=== PATIENT | female | born 1945 | race Caucasian/White ===

== ENCOUNTER → 2024-08-14 | Outpatient (CLI) | payer MEDICARE ==
[2024-08-14 14:33] LABS: INR 0.9 (<1.2); Partial Thromboplastin Time 23.3 sec (22.0-30.0); Prothrombin Time 10.4 sec (10.0-12.5)
[2024-08-14 19:30] LABS: HCT 41.8 % (37.2-46.3); HGB 13.5 g/dL (12.0-15.0); MCH 27.7 pg (27.0-32.0); MCHC 32.3 g/dL (32.0-37.0); MCV 85.8 FL (80.0-97.0); Mean Platelet Volume 10.3 FL (9.5-12.2); NRBC Per 100 WBC 0 X 10*3/uL (0.00-0.01); Platelet Count 297 X 10*3/uL (140-440); RBC 4.87 X 10*6/uL (4.10-5.20); RDW 13.1 % (11.5-14.5); WBC 7.52 X 10*3/uL (4.50-10.00)
[2024-08-14 19:36] LABS: ALT 19 U/L (8-44); AST 23 U/L (13-35); Albumin 4.3 g/dL (3.8-4.9); Albumin/Globulin Ratio 1.54 Ratio (1.60-3.17); Alkaline Phosphatase 138 U/L (41-126); BUN/Creat Ratio 18.33 Ratio (12.00-20.00); Blood Urea Nitrogen 16.5 mg/dL (9.0-27.0); Calcium 9.6 mg/dL (8.7-10.3); Carbon Dioxide 29.8 mmol/L (21.6-31.8); Chloride 103 mmol/L (96-109); Globulin 2.8 g/dL (1.6-3.3); Glucose 127 mg/dL (70-110); Potassium 4.4 mmol/L (3.5-5.5); Sodium 143 mmol/L (135-145); Total Bilirubin 0.2 mg/dL (0.3-1.2); Total Protein 7.1 g/dL (6.2-8.2)
== END | disposition home or self-care (01) ==
LOC: LABPAT 13:09
PROVIDERS: ATTEND Orthopaedic Surgery
DX: Z01.812 Encounter for preprocedural laboratory examination (principal); E11.9 Type 2 diabetes mellitus without complications; M16.11 Unilateral primary osteoarthritis, right hip; Z22.322 Carrier or suspected carrier of Methicillin resistant Staphylococcus aureus
CPT/HCPCS: 80053; 83036; 85027; 85610; 85730; 86850; 86900; 86901; 87070

== ENCOUNTER → 2025-02-22 | Outpatient (CLI) | payer MEDICARE ==
[2025-02-22 12:14] LABS: INR 1.0 (<1.2); Partial Thromboplastin Time 24.0 sec (22.0-30.0); Prothrombin Time 10.7 sec (10.0-12.5)
[2025-02-22 15:52] LABS: HCT 37.5 % (37.2-46.3); HGB 12.0 g/dL (12.0-15.0); MCH 27.6 pg (27.0-32.0); MCHC 32.0 g/dL (32.0-37.0); MCV 86.4 FL (80.0-97.0); NRBC Per 100 WBC 0 X 10*3/uL (0.00-0.01); Platelet Count 338 X 10*3/uL (140-440); RBC 4.34 X 10*6/uL (4.10-5.20); RDW 13.7 % (11.5-14.5); WBC 7.66 X 10*3/uL (4.50-10.00)
[2025-02-22 15:58] LABS: ALT 27 U/L (8-44); AST 27 U/L (13-35); Albumin 4.3 g/dL (3.8-4.9); Albumin/Globulin Ratio 1.65 Ratio (1.60-3.17); Alkaline Phosphatase 128 U/L (41-126); Anion Gap 13.50 mmol/L (4.00-12.00); BUN/Creat Ratio 29.62 Ratio (12.00-20.00); Blood Urea Nitrogen 23.7 mg/dL (9.0-27.0); Calcium 9.6 mg/dL (8.7-10.3); Carbon Dioxide 25.5 mmol/L (21.6-31.8); Chloride 104 mmol/L (96-109); Globulin 2.6 g/dL (1.6-3.3); Glucose 106 mg/dL (70-110); Potassium 4.7 mmol/L (3.5-5.5); Sodium 143 mmol/L (135-145); Total Protein 6.9 g/dL (6.2-8.2)
== END | disposition home or self-care (01) ==
LOC: LABWHC1 11:04
PROVIDERS: ATTEND Orthopaedic Surgery
DX: Z01.818 Encounter for other preprocedural examination (principal); M16.11 Unilateral primary osteoarthritis, right hip; I44.7 Left bundle-branch block, unspecified; E11.9 Type 2 diabetes mellitus without complications; I44.0 Atrioventricular block, first degree; R00.1 Bradycardia, unspecified; R94.31 Abnormal electrocardiogram [ECG] [EKG]; Z22.322 Carrier or suspected carrier of Methicillin resistant Staphylococcus aureus
CPT/HCPCS: 36415; 80053; 83036; 85027; 85610; 85730; 86850; 86900; 86901; 87070; 93005

== ENCOUNTER 2025-03-02 08:24 | Day surgery (SDC) | payer MEDICARE ==
[~2025-03-02 08:24] MED LIST: HYDROmorphone 0.5 MG/0.5 ML SYRINGE IVP PRN; TRANEXAMIC 1,000 MG/100ML-NACL 1,000 MG in SALINE 1 100ML.BAG IV PRN; TRANEXAMIC 1,000 MG/100ML-NACL 1,000 MG in SALINE 1 100ML.BAG IVPB PRN
[2025-03-02] MEDS: LACTATED RINGERS 1,000 ML IV SCH (09:00)
[2025-03-02] MEDS: IV FLUID CONTINUATION 1,000 ML IV ONE (09:00)
[2025-03-02] MEDS: LIDOCAINE 1% (10MG/ML) FOR IV START INTRADERMA STA (09:01)
[2025-03-02] MEDS: ACETAMINOPHEN TAB 500 MG TAB PO PRN (09:01)
[2025-03-02] MEDS: oxyCODONE ER 10 MG TAB.ER.12H PO PRN (09:02)
[2025-03-02] MEDS: DOCUSATE 100 MG CAP PO PRN (09:03)
[2025-03-02] MEDS: ONDANSETRON 4 MG/2 ML VIAL IVP PRN ×2 (09:03→18:22)
[2025-03-02] MEDS: FAMOTIDINE 20 MG/2 ML VIAL IVP PRN (09:03)
[2025-03-02] MEDS: KETOROLAC 15 MG/ML 1 ML VIAL IVP PRN (09:03)
[2025-03-02] MEDS: DEXAMETHASONE SOD PHOSPHATE 10 MG/ML 1 ML VIAL IV PRN (09:03)
[2025-03-02] MEDS: MIDAZOLAM 2 MG/2 ML VIAL IV PRN (09:23)
[2025-03-02] MEDS: fentaNYL (PF) 50 MCG/ML 2 ML AMP IVP PRN (09:23)
[2025-03-02] MEDS ORDERED: ROPIVACAINE 5 MG/ML 30 ML VIAL ONE (10:25)
[2025-03-02] MEDS ORDERED: PROPOFOL 10 MG/ML 20 ML VIAL IV ONE (10:25)
[2025-03-02] MEDS ORDERED: LIDOCAINE 1% INJ 10MG/ML (20 ML MDV) ONE (10:25)
[2025-03-02] MEDS ORDERED: PHENYLEPHRINE 10 MG/ML VIAL ONE (10:25)
[2025-03-02] MEDS ORDERED: ePHEDrine 50 MG/ML 1 ML VIAL ONE (10:25)
[2025-03-02] MEDS ORDERED: GLYCOPYRROLATE 0.2 MG/ML 2 ML VIAL ONE (10:25)
[2025-03-02] MEDS ORDERED: DEXAMETHASONE SOD PHOSPHATE 4 MG/ML 1 ML VIAL ONE (10:25)
[2025-03-02] MEDS ORDERED: TRANEXAMIC 1,000 MG/100ML-NACL PREMIX BAG ONE (10:25)
[2025-03-02] MEDS ORDERED: ROCURONIUM 10 MG/ML (5 ML VIAL) IV ONE (10:25)
[2025-03-02] MEDS ORDERED: NEOSTIGMINE 1 MG/ML 10 ML VIAL ONE (10:25)
[2025-03-02] MEDS ORDERED: SUCCINYLCHOLINE CHLORIDE 200 MG/10 ML VIAL IV ONE (10:25)
[2025-03-02] MEDS ORDERED: fentaNYL (PF) 50 MCG/ML 2 ML AMP ONE (10:25)
[2025-03-02] MEDS: ROPIVACAINE/EPI/CLONIDINE/KET 50 ML SYRINGE MISCELLANE PRN (10:59)
[2025-03-02] MEDS: SODIUM CHLORIDE IRRIGATION ONE ×2 (11:44→11:56)
[2025-03-02] MEDS: EPINEPHRINE IRRIGATION ONE ×2 (11:44→11:56)
[2025-03-02] MEDS ORDERED: HYDROcodone/APAP 5-325MG 1 EACH TAB PO PRN (12:29)
[2025-03-02] MEDS ORDERED: hydrOXYzine HCL 25 MG TAB PO PRN (12:29)
[2025-03-02] MEDS ORDERED: NALOXONE 0.4 MG/ML 1 ML VIAL IV PRN (12:29)
[2025-03-02] MEDS ORDERED: diazePAM 5 MG TAB PO PRN ×2 (12:29)
[2025-03-02] MEDS ORDERED: HYDROmorphone 0.5 MG/0.5 ML SYRINGE IVP PRN ×3 (12:29)
[2025-03-02] MEDS ORDERED: TEMAZEPAM 15 MG CAP PO PRN (12:29)
[2025-03-02] MEDS ORDERED: MAGNESIUM HYDROXIDE 2,400 MG/30 ML CUP PO PRN (12:29)
--- NOTE | 2025-03-02 12:29 | P.OP ---
Date of Procedure: 03/02/25 Preoperative Diagnosis: 1. Right hip osteoarthritis 2. History of breast cancer 3. Known history of osteoporosis Postoperative Diagnosis: Same Procedure(s) Performed: Right direct anterior total hip arthroplasty Implants: 1. [place] Trident II Acetabular Cup, Size #50 2. [place] Accolade C Size #3 Femoral Stem, High Offset 3. Dual Mobility OD 38 mm, ID 28 mm, -2.7 mm neck Anesthesia: RAHEELA, regional Surgeon: Niall Cruz Securities Teller #1: Henry Gandhi Estimated Blood Loss (ml): 300 IV fluids (ml): 800 Pathology: none sent Condition: stable Disposition: PACU Indications for Procedure: I had a long discussion with the patient in the office on the potential risks and complications of an elective total hip replacement through a direct anterior approach. Risks discussed include, but are certainly not limited to, risks from anesthesia, superficial infection requiring local wound care or antibiotics, deep sachin-prosthetic joint infection and the treatment required to eradicate infection, intraoperative fracture, postoperative periprosthetic fracture, damage to local blood vessels or nerves particularly the lateral femoral cutaneous nerve, delayed wound healing requiring local wound care or possibly surgical debridement, hip dislocation, leg length discrepancy, soft tissue irritation around the total hip implant such as iliopsoas tendinitis or trochanteric bursitis, wear and osteolysis from the implants, squeaking or audible noises, groin pain, thigh pain, heterotopic ossification, stiffness, aseptic loosening of the implants, dissatisfaction with surgical outcome, need for revision surgery, DVT, PE, swelling of the operative extremity, acute coronary event, stroke, failure to thrive, and possibly loss of life or limb. The patient understands that while these are the most common complications after an elective hip replacement there are certainly other less common complications possible. They were given ample time to ask questions regarding the potential complications of a hip replacement. Following our discussion the patient provided their verbal and written consent to go forward with an elective total hip replacement. Operative Findings: Severe right hip osteoarthritis with hypertrophic spurring along the femoral neck and acetabulum. Inflamed synovium in the hip joint. Description of Procedure: The patient was identified in the preoperative holding area and the correct hip was marked with my initials. I reviewed the procedure and consent with the patient. All of their questions were answered. The patient was then brought back into the operating room by anesthesia. While on the [facility] anesthesia was administered by the anesthesia team. Preoperative antibiotics and tranexamic acid were also given. After the patient was under anesthesia I examined their ankles to determine their preoperative leg length discrepancy. The skin over the anterior aspect of the hip was shaved to remove hair over the site of planned incision. Both feet and ankles were padded with webril and boots for the [place] were applied. The patient was then carefully transferred onto the [place] table. A perineal post was immediately placed. The arms were placed on arm holders and were well-padded. Both boots were secured to the spars on the [place] table. The patient was positioned so that the pelvis was centered over the post. Nonsterile drapes were applied. A timeout was performed identifying the correct patient, operative extremity, and procedure. At this point fluoroscopy was brought in to take preoperative images of the pelvis and operative hip. Using the standing AP pelvis from the office as a template, a comparable image was obtained with fluoroscopy. A metallic bar was used to create a bi-ischial line for use as a reference to leg length adjustments during the procedure. Global offset was also measured on both the operative and nonoperative leg. Fluoroscopy was then brought out and a pre-scrub using a chlorhexidine scrub brush was performed. The operative limb was then prepped and draped in the standard sterile fashion. An anterior longitudinal incision was made lateral and distal to the ASIS. The skin and subcutaneous tissues were incised sharply. The underlying tensor fascia was identified and incised in its midportion. The fascia was dissected free from the underlying muscle and the muscle belly was retracted. A blunt tipped cobra retractor was placed over the superior neck under the muscle fibers of the gluteus minimus. The deep enveloping fascia of the tensor was incised. The anterior leash of vessels were then identified and cauterized. The fascia between the rectus and the capsule was then incised and the pre-capsular fat was excised. A second Cobra was placed inferior to the neck. The interval between the rectus and iliocapsularis and the hip capsule was developed and a retractor was placed carefully over the anterior rim of the acetabulum. A T-shaped anterior capsulotomy was performed. The superior capsular leaflet was left in place in the inferior capsular flap was excised. The Cobra retractors were placed intracapsularly. We then made a femoral neck osteotomy according to preoperative and intraoperative templating and confirmed the level of the osteotomy using fluoroscopic imaging. The femoral head was removed, passed off to the back table, and sized. The superior capsular flap was excised. Retractors were placed circumferentially exposing the acetabulum. We then circumferentially debrided the acetabulum free of labrum and osteophytes. The pulvinar was removed to fully visualize the cotyloid fossa. We then sequentially reamed to achieve peripheral fit and excellent bleeding subchondral bone. The socket was thoroughly irrigated. The acetabular component was impacted into the appropriate position using fluoroscopy to guide version, inclination, and depth of insertion taking care to have a comparable image of the AP pelvis to the standing image taken in the office. An excellent press-fit was achieved and final position was confirmed using fluoroscopy. The press fit was augmented with bony cancellus dome screws. The liner was then impacted into the socket. Attention was then turned to the femur. The remnant dorsal lateral capsule was excised. The short external rotators were visible and protected. A bone hook was used to confirm appropriate translation of the trochanter away from the acetabulum. The leg was then extended and adducted and the bone hook was used to elevate the femur for broaching. On inspection of the patient's proximal femur, they appeared to have poor bone quality so I elected to proceed with cemented fixation of the femoral component. A box osteotome and blunt tipped canal sound was then utilized to gain access to the femoral canal. We then sequentially broached the femur in appropriate anteversion until torsional stability was achieved and the implant was felt to have reached the appropriate size to allow trialing. The neck cut was brought flush to the trial broach with a calcar planar. A trial neck and head were then placed onto the broach and the hip was atraumatically reduced under direct visualization. External rotation to 90 was performed to assess stability. Fluoroscopy was brought in. An AP and lateral fluoroscopic image of the proximal femur was obtained to assess position and fill of the trial broach. An AP of the pelvis was then obtained and matched to the preoperative image taken. A bi-ischial bar was then placed and measurements were taken to assess changes in length and offset. The hip was then carefully dislocated, the proximal femur was exposed, and the trial implants were removed. The proximal femur was then prepared for cementing. The canal was thoroughly irrigated with pulsatile lavage to remove blood and marrow contents. A cement restrictor was placed to a depth just distal to the tip of the final implant. Epinephrine-soaked gauze was then packed into the proximal femur. 2 bags of cement were then mixed using a centrifuge and placed into a cement gun. Anesthesia was notified that cementing was about to commence to make sure the patient was appropriately ventilated and hydrated. Once the cement had reached appropriate consistency, the cement gun was used to fill the canal in a retrograde fashion starting at the restrictor. Cement was then pressurized into the canal with a blue tipped project management advisor. The stem was then carefully introduced into the cement taking care to guide the implant into appropriate version. The stem was held in position until the cement had fully set. All extra cement was removed while the cement was hardening. The trunnion was cleansed and the final head was tapped into place to engage the Hussein taper. The acetabulum was irrigated and visualized to be free of debris. The hip was carefully reduced. Stability was checked clinically with external rotation to 90 and there was no evidence of instability. Final fluoroscopic images were taken. The wound was then thoroughly irrigated and soaked with a dilute Betadine rinse for 3 minutes. 3 L of sterile saline was irrigated through the wound using pulsatile lavage. Local anesthetic cocktail was injected into the soft tissues around the surgical field. The wound was then closed in layers. A sterile dressing was placed over the surgical incision. The drapes were taken down and the patient was carefully transferred off of the [place] table. Following removal of the boots the leg lengths felt acceptable. The patient was then taken to recovery room having tolerated the procedure well. Henry Gandih PA-C was required as a skilled assistant store manager operations due to the complexity of surgery for patient positioning, draping, exposure, retraction, closure of wound and application of dressing. PLAN: The patient can weight-bear as tolerated on the operative extremity. 2 doses of postoperative antibiotics. DVT prophylaxis with aspirin 81 mg twice a day based on preoperative risk stratification. Physical therapy for gait training.
--- NOTE | 2025-03-02 12:51 | FL ---
EXAMINATION TYPE: FL guidance operating room, XR Hip Limited RT DATE OF EXAM: 03/02/2025 12:28 PM COMPARISON: Pre Operative Images if available both CT/MRI or plain film CLINICAL INDICATION: Female, 79 years old with history of RT ANTERIOR HIP; TECHNIQUE: FL guidance operating room, XR Hip Limited RT, multiple fluoroscopic images provided for p rocedure. DAP: 1.5116 mGym2 Gycm2 uGym2 cGycm2 or equivalent. FINDINGS: Fluoroscopic images during internal fixation/arthroplasty demonstrate hardware in appropriate positio n. Hardware appears intact. No immediate complication identified. IMPRESSION: 1. No evidence for intraoperative complication. 2. Please see the operative/procedural note for further details. [facility], , 03/02/2025 12:48 PM
[2025-03-02] MEDS: HYDROcodone/APAP 10-325MG 1 EACH TAB PO PRN (14:34)
[2025-03-02] MEDS: SODIUM CHLORIDE 0.9% 1,000 ML IV SCH (14:35)
--- NOTE | 2025-03-02 18:57 | P.CONS ---
History of Present Illness - Reason for Consult Consult date: 03/02/25 Medical management Requesting physician: Niall Cruz - Chief Complaint Hip surgery - History of Present Illness Pleasant 79-year-old patient who follows with Dr. Leighton Ramsay. Patient is undergone right total hip arthroplasty. Postprocedure pain is reasonable. No nausea vomiting. Denies any cardiac history. Laying in bed. Review of systems: GEN.: None EYES: None HEENT: None NECK: None RESPIRATORY: None CARDIOVASCULAR: None GASTROINTESTINAL: None GENITOURINARY: None MUSCULOSKELETAL: Joint pains] LYMPHATICS: None HEMATOLOGICAL: None PSYCHIATRY: None NEUROLOGICAL: None Social history: No history of alcohol or smoking. Lives with her Review of systems:Physical examination: VITAL SIGNS: [R 97.6, 63, 18, 103 x 32, 99% room air GENERAL: BMI 24.1, laying in bed awake comfortable. EYES: Pupils equal. Conjunctiva tomasa l. HEENT: External appearance of nose and ears normal, oral cavity grossly normal. NECK: JVD not raised; masses not palpable. HEART: First and second heart sounds are normal; no edema. LUNGS: Respiratory rate normal; clear to auscultation. ABDOMEN: Soft, nontender, liver spleen not palpable, no masses palpable. PSYCH: Alert and oriented x3; mood and affect tomasa l. MUSCULOSKELETAL:No Clubbing/cyanosis;muscles-grossly intact. Dressing over the incision site. OA. NEUROLOGICAL: Cranial nerves grossly intact; no facial asymmetry, power and sensation grossly intact. LYMPHATICS: No lymph nodes palpable in the axilla and neck INVESTIGATIONS, reviewed in the clinical context: February 22, 2025: White count 7.6 hemoglobin 12 platelets 338 sodium 143 potassium 4.7 creatinine 0.8 Assessment plan: - Right total hip arthroplasty Aspirin 81 mg twice daily for DVT prophylaxis. Cefazolin for infection prophylaxis. Pain control - Primary osteoarthritis Pain control as needed - Essential hypertension Lopressor. Zestril. Hydrochlorothiazide. Currently blood pressure running a bit on the softer side. Hold off Zestril and hydrochlorothiazide - Kidney stones. Asymptomatic Cares discussed with patient. Questions answered. Thank you Dr. Cruz Past Medical History Past Medical History: Cancer, Hypertension, Osteoarthritis (OA) Additional Past Medical History / Comment(s): Lt. breast cancer(lumpectomy & radiation 2004), Hx. anemia, Hx.kidney stone History of Any Multi-Drug Resistant Organisms: None Reported Past Surgical History: Breast Surgery Additional Past Surgical History / Comment(s): Left breast lumpectomy, D & C, colonoscopy Past Anesthesia/Blood Transfusion Reactions: No Reported Reaction Past Psychological History: No Psychological Hx Reported Smoking Status: Never smoker Past Alcohol Use History: None Reported Past Drug Use History: None Reported Medications and Allergies Home Medications Medication Instructions Recorded Confirmed Type Cardio Plus 1 tab PO BID 08/18/24 02/27/25 History Metoprolol Tartrate [Lopressor] 25 mg PO BID 08/18/24 02/27/25 History Multivitamins, Thera [Multivitamin 1 tab PO DAILY 08/18/24 02/27/25 History (formulary)] Mv-Min/FA/Vit K/Lutein/Zeaxant 1 each PO DAILY 08/18/24 02/27/25 History [Preservision Areds 2 Plus Mv] hydroCHLOROthiazide 25 mg PO DAILY 02/27/25 02/27/25 History lisinopriL [Zestril] 20 mg PO HS 02/27/25 02/27/25 History Allergies Allergy/AdvReac Type Severity Reaction Status Date / Time No Known Allergies Allergy Verified 08/18/24 15:20 Physical Exam Vitals: Vital Signs Temp Pulse Pulse Pulse Resp BP Pulse Ox 03/02/25 14:16 97.6 F 63 18 103/62 99 03/02/25 13:45 61 16 116/54 100 03/02/25 13:30 56 L 14 122/56 100 03/02/25 13:15 60 14 124/59 100 03/02/25 13:00 61 14 113/55 100 03/02/25 12:48 97.8 F 97 14 120/59 100 03/02/25 09:50 53 L 15 128/62 100 03/02/25 09:35 51 L 12 138/65 100 03/02/25 09:30 50 L 25 H 118/59 100 03/02/25 09:25 52 L 16 112/55 100 03/02/25 08:54 97.3 F L 56 L 16 156/63 99 Intake and Output 03/02/25 03/02/25 03/02/25 06:59 14:59 22:59 Intake Total 951 450 Output Total 300 Balance 651 450 Intake: IV 951 Intake, IV Titration 450 Amount Sodium Chloride 0.9% 1, 450 000 ml @ 75 mls/hr IV . [id number] [facility] Rx#:[id number] Output: Estimated Blood Loss 300 Other: Weight 63.6 kg
[2025-03-02] MEDS: METOPROLOL TARTRATE 25 MG TAB PO SCH (20:50)
[2025-03-02] MEDS: ASPIRIN 81 MG PO SCH (21:03)
[2025-03-02] MEDS: SENNOSIDES-DOCUSATE SODIUM 1 EACH TAB PO SCH (21:03)
[2025-03-03 02:40] VITALS: RESP 18
[2025-03-03] MEDS: FAMOTIDINE 20 MG TAB PO SCH (08:10)
[2025-03-03 08:20] VITALS: BP 107/52; PULSE 75; TEMP 98
[2025-03-03 08:41] LABS: Basophils # (A) 0.01 X 10*3/uL (0.00-0.10); Basophils % (A) 0.1 %; Eosinophils # (A) 0 X 10*3/uL (0.04-0.35); Eosinophils % (A) 0 %; HCT 25.1 % (37.2-46.3); HGB 8.1 g/dL (12.0-15.0); Immature Grans, Automated 0.40 %; Lymphocytes # (A) 0.63 X 10*3/uL (0.90-5.00); Lymphocytes % (A) 4.5 %; MCH 28.1 pg (27.0-32.0); MCHC 32.3 g/dL (32.0-37.0); MCV 87.2 FL (80.0-97.0); Monocytes # (A) 0.91 X 10*3/uL (0.20-1.00); Monocytes % (A) 6.6 %; NRBC Per 100 WBC 0 X 10*3/uL (0.00-0.01); Neutrophils # (A) 12.27 X 10*3/uL (1.80-7.70); Neutrophils % (A) 88.4 %; Platelet Count 228 X 10*3/uL (140-440); RBC 2.88 X 10*6/uL (4.10-5.20); RDW 13.6 % (11.5-14.5); WBC 13.88 X 10*3/uL (4.50-10.00)
--- NOTE | 2025-03-03 11:24 | P.DS ---
Providers Attending physician: Niall Cruz Consults: 03/02/25 14:26 Consult Physician Routine Consulting Provider: Ej Gilbert Consult Reason/Comments: medical management Do you want consulting provider notified?: Yes Primary care physician: [facility] Course: This is a 80-year-old patient, with past medical history of severe right hip osteoarthritis, who failed nonsurgical conservative management. On 03/02/2025 the patient presented to the [facility] pre-op department for scheduled direct anterior total hip arthroplasty with Dr. Cruz. The patient tolerated the procedure well. The patient was transferred to the orthopedic floor. The patient had no acute events over night. The patient's pain has been well- controlled. Patient was examined at bedside. Patient is resting comfortably in bed. No apparent distress. They are awake, alert and able to answer questions. Inspection: The surgical dressing is intact, there is no drainage or strikethrough. The skin surrounding the dressing is free of erythema. There is mild swelling in the operative thigh. Palpation: The operative calf is soft to compression. No calf tenderness. Neurovascular: Operative femoral nerve function is intact. The patient is able to actively plantarflex and dorsiflex their operative ankle and toes. Operative extremity sensation is intact to light touch throughout Their operative foot appears well perfused, palpable dorsalis pedis pulse, and capillary refill under 2 seconds. Patient worked with physical therapy and it was determined they could discharge home. Plan to discharge home today if cleared by internal medicine. Patient has pain medication at home and can resume pain medication at home. Plan follow up in two weeks in our office. Please see med rec for a list of accurate medications. Assessment: Postop day #1 status post right total hip arthroplasty for severe right hip osteoarthritis Right hip pain Plan - Discharge Summary Discharge Rx Participant: No New Discharge Prescriptions: No Action Multivitamins, Thera [Multivitamin (formulary)] 1 tab PO DAILY Metoprolol Tartrate [Lopressor] 25 mg PO BID lisinopriL [Zestril] 20 mg PO HS hydroCHLOROthiazide 25 mg PO DAILY Mv-Min/FA/Vit K/Lutein/Zeaxant [Preservision Areds 2 Plus Mv] 1 each PO DAILY Cardio Plus 1 tab PO BID Discharge Medication List Cardio Plus 1 tab PO BID 08/18/24 [History] Metoprolol Tartrate [Lopressor] 25 mg PO BID 08/18/24 [History] Multivitamins, Thera [Multivitamin (formulary)] 1 tab PO DAILY 08/18/24 [History] Mv-Min/FA/Vit K/Lutein/Zeaxant [Preservision Areds 2 Plus Mv] 1 each PO DAILY 08/18/24 [History] hydroCHLOROthiazide 25 mg PO DAILY 02/27/25 [History] lisinopriL [Zestril] 20 mg PO HS 02/27/25 [History] Follow up Appointment(s)/Referral(s): [facility] [NON-STAFF] - As Needed Niall Cruz MD [Medical Doctor] - 2 Weeks Activity/Diet/Wound Care/Special Instructions: 1. Weight-bear as tolerated on your operative extremity unless instructed otherwise. Use a walker or other assistive device to ambulate. 2. Leave surgical dressing in place. If your dressing becomes saturated with blood, there is drainage, or the dressing becomes loose please contact the office. 3. It is okay to shower with your surgical dressing, but do not submerge in water (no hot tubs, bath's, swimming etc.) 4. Take your blood clot prevention medication as prescribed (aspirin, Eliquis, Xarelto, and Plavix are commonly prescribed medications for blood clot prevention) 5. Patient has pain medicine at home and can resume at home. While taking [place] or Percocet for pain take a stool softener (Ex: Colace) and drink lots of water. 6. Keep all follow-up appointments as scheduled. You will usually be seen in 1-2 weeks following surgery. 7. Please contact the office with any questions or concerns [phone] Discharge Disposition: HOME WITH HOME HEALTH SERVICES
[2025-03-03] MEDS ORDERED: MULTIVITAMINS, THERA 1 EACH TAB PO SCH (12:00)
--- NOTE | 2025-03-03 16:08 | P.PN ---
Progress Note - Text Progress Note Date: 03/03/25 - Chief Complaint Hip surgery - History of Present Illness Pleasant 79-year-old patient who follows with Dr. Leighton Ramsay. Patient is undergone right total hip arthroplasty. Postprocedure pain is reasonable. No nausea vomiting. Denies any cardiac history. Laying in bed. March 03: Pain controlled. Did work with therapy. Did feel a bit dizzy last night. Blood loss anemia. Ferrous sulfate added. Blood pressure running the lower side. Discussed with the patient and her son at the bedside. Patient stopped Lopressor once systolic blood pressures above 120. And once systolic blood pressures above 142 at lisinopril. Hold off the water pill. Eating fair.: Social history: No history of alcohol or smoking. Lives with her Review of systems:Physical examination: VITAL SIGNS: 98, 75, 18, 107 x 52, 98% room air GENERAL: BMI 24.1, up in the chair, eating EYES: Pupils equal. Conjunctiva tomasa l. HEENT: External appearance of nose and ears normal, oral cavity grossly normal. NECK: JVD not raised; masses not palpable. HEART: First and second heart sounds are normal; no edema. LUNGS: Respiratory rate normal; clear to auscultation. ABDOMEN: Soft, nontender, liver spleen not palpable, no masses palpable. PSYCH: Alert and oriented x3; mood and affect tomasa l. MUSCULOSKELETAL:No Clubbing/cyanosis;muscles-grossly intact. Dressing over the incision site. OA. INVESTIGATIONS, reviewed in the clinical context: March 03: White count 13.8 hemoglobin 8.1 platelets 228 Previous labs February 22, 2025: White count 7.6 hemoglobin 12 platelets 338 sodium 143 potassium 4.7 creatinine 0.8 Assessment plan: - Right total hip arthroplasty Aspirin 81 mg twice daily for DVT prophylaxis. Cefazolin for infection prophylaxis. Pain control - Primary osteoarthritis Pain control as needed - Acute postprocedure blood loss anemia expected from surgery Ferrous sulfate daily - Essential hypertension Lopressor. Zestril. Hydrochlorothiazide. Currently blood pressure running a bit on the softer side. Patient and son informed to start Lopressor once systolic blood pressure 120. And to add lisinopril when systolic blood pressure above 140. Hold a water pill - Kidney stones. Asymptomatic Blood pressure medication discussed. Ferrous sulfate added. Follow-up with PCP next week. Thank you Dr. Braaksma Past Medical History Past Medical History: Cancer, Hypertension, Osteoarthritis (OA) Additional Past Medical History / Comment(s): Lt. breast cancer(lumpectomy & radiation 2004), Hx. anemia, Hx.kidney stone History of Any Multi-Drug Resistant Organisms: None Reported Past Surgical History: Breast Surgery Additional Past Surgical History / Comment(s): Left breast lumpectomy, D & C, colonoscopy Past Anesthesia/Blood Transfusion Reactions: No Reported Reaction Past Psychological History: No Psychological Hx Reported Smoking Status: Never smoker Past Alcohol Use History: None Reported Past Drug Use History: None Reported
[2025-03-03] MEDS ORDERED: TEMAZEPAM 15 MG CAP PO PRN (22:00)
--- NOTE | 2025-03-06 11:36 | P.ANPRN ---
Procedure Note - Anesthesia - Nerve Block Performed Right Massimo Single Time Out Performed: Yes Date of Procedure: 03/02/25 Procedure Start Time: : Procedure Stop Time: : Location of Patient: PreOp Indication: Acute Post-Operative Pain, Requested by Surgeon Sedation Type: Sedate with meaningful contact maintained Preparation: Sterile Prep Position: Supine Needle Types: [place]unk Needle Gauge: 21 Injectate: 0.5% Ropivacaine (see comment for volume) (30 ml + 4 mg Dexamethasone) Blood Aspirated: No Pain Paresthesia on Injection Noted: No Resistance on Injection: Normal Image Stored and Saved: Yes Events: Uneventful and Well Tolerated
== END 2025-03-03 13:24 | disposition home health service (06) ==
LOC: OR 08:24 → 4SSUR 12:48 → EDSTATUS 12:50 → OR 03-03 13:24
PROVIDERS: ATTEND Orthopaedic Surgery
DX: M16.11 Unilateral primary osteoarthritis, right hip (principal); G89.18 Other acute postprocedural pain; I10 Essential (primary) hypertension; M81.0 Age-related osteoporosis without current pathological fracture; Z79.899 Other long term (current) drug therapy; Z85.3 Personal history of malignant neoplasm of breast; Z87.442 Personal history of urinary calculi
CPT/HCPCS: 97116; 97161; 64473; 85025; 73501; 99213; 27130; C1776; C1713; J2250; J1100; J0690 ×2; J2405; J3010; J1885; J1308; J0166